=== PATIENT | female | born 1985 | race Caucasian/White ===

== ENCOUNTER 2016-08-28 15:14 | Outpatient (CLI) | payer BC | END 2016-08-28 16:23 | disposition home or self-care (01) | LOC: GENOP 15:14 | DX: O42.92 Full-term premature rupture of membranes, unspecified as to length of time between rupture and onset of labor (principal); O26.893 Other specified pregnancy related conditions, third trimester; Z3A.37 37 weeks gestation of pregnancy; R10.9 Unspecified abdominal pain | CPT/HCPCS: 81001; 83518; G0463 ==

== ENCOUNTER 2016-09-06 07:30 | Inpatient (IN) | payer BC ==
[~2016-09-06] VITALS: Ht 170.2 cm; Wt 103.9 kg
[2016-09-08 03:18] LABS: HEMOGLOBIN 9.4 gm/dl (12.3-15.3)
[2016-09-09] MEDS ORDERED: COLACE 100MG C100 MG PO (08:30)
== END 2016-09-09 11:20 | disposition home or self-care (01) | DRG 766 ==
LOC: OB 09-07 06:36
PROVIDERS: ADMIT Obstetrics & Gynecology
PROC: 3E0R3CZ (ICD-10-PCS; 2016-09-07)
PROC: 10D00Z1 Extraction of Products of Conception, Low, Open Approach (ICD-10-PCS; principal; 2016-09-07 09:30)
DX: O32.1XX0 Maternal care for breech presentation, not applicable or unspecified (principal); O26.893 Other specified pregnancy related conditions, third trimester; Z67.41 Type O blood, Rh negative; O09.03 Supervision of pregnancy with history of infertility, third trimester; O09.813 Supervision of pregnancy resulting from assisted reproductive technology, third trimester; Z3A.39 39 weeks gestation of pregnancy; Z37.0 Single live birth; O99.89 Other specified diseases and conditions complicating pregnancy, childbirth and the puerperium; M54.9 Dorsalgia, unspecified; O99.214 Obesity complicating childbirth; E66.9 Obesity, unspecified; Z68.38 Body mass index [BMI] 38.0-38.9, adult; O99.613 Diseases of the digestive system complicating pregnancy, third trimester; R12 Heartburn; Z80.3 Family history of malignant neoplasm of breast; Z80.9 Family history of malignant neoplasm, unspecified; Z82.49 Family history of ischemic heart disease and other diseases of the circulatory system; Z83.49 Family history of other endocrine, nutritional and metabolic diseases
CPT/HCPCS: 36415; 82800; 85014; 85018; 85461; 86850; 86900; 86901; C9113; J0690; J2405; J2590; J2765; J3430; J7120

== ENCOUNTER 2016-09-06 10:04 | Outpatient (CLI) | payer BC ==
[2016-09-06 10:49] LABS: HEMOGLOBIN 10.4 gm/dl (12.3-15.3); RED BLOOD COUNT 3.42 M/UL (4.00-5.10); WHITE BLOOD COUNT 9.9 K/UL (4.5-11.0)
== END 2016-09-06 11:37 | disposition home or self-care (01) ==
LOC: GENOP 10:04
PROVIDERS: Obstetrics & Gynecology
DX: Z01.812 Encounter for preprocedural laboratory examination (principal); O32.1XX0 Maternal care for breech presentation, not applicable or unspecified; Z3A.00 Weeks of gestation of pregnancy not specified
CPT/HCPCS: 36415; 81001; 85025; J7120

== ENCOUNTER → 2020-07-09 | Outpatient (CLI) | payer BC, OTHER ==
[~2020-07-09] MED LIST: COLACE 100MG C100 MG PO; CYCLOBENZAPRINE10 MG PO; NAPROSYN500 MG PO; NORCO 5-325 TA1 EACH PO
== END ==
LOC: CT 07:43
DX: K52.9 Noninfective gastroenteritis and colitis, unspecified (principal)
CPT/HCPCS: 74160; Q9967

== ENCOUNTER 2020-09-04 07:43 | Emergency (ER) | payer BC, OTHER ==
[~2020-09-04 07:43] MED LIST changes: -CYCLOBENZAPRINE10 MG PO; -NAPROSYN500 MG PO
[2020-09-04] MEDS ORDERED: CYCLOBENZAPRINE10 MG PO (08:41)
[2020-09-04] MEDS ORDERED: NAPROSYN500 MG PO (08:41)
== END 2020-09-04 08:51 | disposition home or self-care (01) ==
LOC: ER1 07:43
DX: S46.912A Strain of unspecified muscle, fascia and tendon at shoulder and upper arm level, left arm, initial encounter (principal); W19.XXXA Unspecified fall, initial encounter; Y92.009 Unspecified place in unspecified non-institutional (private) residence as the place of occurrence of the external cause
CPT/HCPCS: 73030; 96372; 99283; J1885

== ENCOUNTER → 2020-10-29 | Outpatient (CLI) | payer BC, OTHER ==
[~2020-10-29] MED LIST changes: +CYCLOBENZAPRINE10 MG PO; +NAPROSYN500 MG PO
== END ==
LOC: KOH-I 08:00
DX: M47.22 Other spondylosis with radiculopathy, cervical region (principal)
CPT/HCPCS: 72141